=== PATIENT | female | born 1990 | race Caucasian/White ===

== ENCOUNTER → 2017-10-13 | Day surgery (SDC) | payer OTHER ==
[2017-07-14 14:28] VITALS: BMI 16.0
[2017-08-20 08:33] VITALS: BMI 17.0
[~2017-10-13] VITALS: Ht 167.6 cm; Wt 48.2 kg
[~2017-10-13] MED LIST: CITA20TA4 PO; DIVA500T59 PO; FLUT1INH INH; FLV1 PO; HYDR-389 PO; LIDOCAINE HCL 2% 2 ML VIAL (20MG/ML) ONE; METH2.5T PO; MIDAZOLAM HCL 1 MG/ML 2ML VIAL ONE; PROPOFOL IV EMULSION 10 MG/ML 20 ML VIAL ONE; RANI150T85 PO; SODIUM CHLORIDE 0.9% 500ML 500 ML IV ONE; SPR28 PO; VNTHFA/IN INH
[2017-10-13 11:42] VITALS: Ht 167.6 cm; Wt 48.2 kg
--- NOTE | 2017-10-13 12:08 | Endo History and Physical ---
History & Physical Date of Service: October 13, 2017. Chief Complaint: Crohn's disease Referring Physician: DR. ASHRAF History of Present Illness 26 yo CF who presents for colonoscopy secondary to Crohn's disease. Past Surgical History Hx Cardiac Surgery: No Hx Internal Defibrillator: No Hx Pacemaker: No Hx Abdominal Surgery: Yes (COLON RESECTION X2, APPY, [facility]) Hx of Implantable Prosthesis: No Hx Post-Op Nausea and Vomiting: No Hx Cancer Surgery: No Hx Thoracic Surgery: No Hx Orthopedic: No Hx Urinary Tract Surgery: No Family History None Social History Smoking Status: Current Every Day Smoker Hx Substance Use: Yes (MARIJUANA OCCASIONALLY) Hx Alcohol Use: No Allergies Coded Allergies: Adhesives (Verified Allergy, Unknown, RASH, 10/13/17) Ketorolac Tromethamine (Verified Allergy, Unknown, INCREASED ANXIETY, ) Meperidine (Verified Allergy, Unknown, INCREASED ANXIETY, 10/13/17) Tramadol (Verified Allergy, Unknown, INCREASES ANXIETY, 10/13/17) Current Medications Reported Home Medications Medications Dose Route/Sig Max Daily Dose Days Date Category Ventolin Hfa (Albuterol) 200 Puffs/89583 Mcg Aers 2-4 Puffs INH Q6H PRN 07/14/17 Reported Zantac (Ranitidine HCl) 150 Mg Tab 150 Mg PO HS 07/14/17 Reported Methotrexate 2.5 Mg Tab 3 Tab PO WK 07/14/17 Reported Folic Acid 1 Mg Tab 1 Tab PO QAM 07/14/17 Reported Depakote (Divalproex Sodium) 500 Mg Tab 1 Tab PO BID 07/14/17 Reported Vital Signs Weight (Kilograms): 48.18 Height (Feet): 5 Height (Inches): 6 Date Time Temp Pulse Resp B/P (MAP) Pulse Ox O2 Delivery O2 Flow Rate FiO2 10/13/17 12:02 36.5 73 18 104/64 (77) 99 Room Air Physical Exam General Appearance: WD/WN, no apparent distress Respiratory/Chest: Auscultation: breath sounds normal Cardiovascular: Heart Auscultation: RRR Abdomen: Bowel Sounds: normal Inspection & Palpation: soft, non-distended, no tenderness, guarding & rebound Assessment and Plan Assessment: 26 yo CF who presents for colonoscopy secondary to Crohn's disease. Plan: Proceed with colonoscopy
--- NOTE | 2017-10-13 13:05 | Anesthesiology Progress Note ---
Anesthesia Post Op Note Date & Time October 13, 2017 at 13:05 Vital Signs Pain Intensity: 0 Vital Signs Past 12 Hours Date Time Temp Pulse Resp B/P (MAP) Pulse Ox O2 Delivery O2 Flow Rate FiO2 10/13/17 13:01 79 18 102/76 (85) 100 Room Air 10/13/17 12:45 86 18 86/59 (68) 95 Room Air 10/13/17 12:02 36.5 73 18 104/64 (77) 99 Room Air Notes Mental Status: alert / awake / arousable, participated in evaluation Pt Amnestic to Procedure: Yes Nausea / Vomiting: adequately controlled Pain: adequately controlled Airway Patency, RR, SpO2: stable & adequate BP & HR: stable & adequate Hydration State: stable & adequate Anesthetic Complications: no major complications apparent
--- NOTE | 2017-10-13 13:10 | Discharge Instructions ---
Endoscopy Patient Instructions Date / Procedure(s) Performed October 13, 2017. Colonoscopy Allergy Information Coded Allergies: Adhesives (Verified Allergy, Unknown, RASH, 10/13/17) Ketorolac Tromethamine (Verified Allergy, Unknown, INCREASED ANXIETY, ) Meperidine (Verified Allergy, Unknown, INCREASED ANXIETY, 10/13/17) Tramadol (Verified Allergy, Unknown, INCREASES ANXIETY, 10/13/17) Discharge Date / Findings October 13, 2017. Crohn's Ileitis with severe stricture Random colon biopsies Medication Instructions OK to resume all medications today as prescribed Reported Home Medications Medications Dose Route/Sig Max Daily Dose Days Date Category Ventolin Hfa (Albuterol) 200 Puffs/66225 Mcg Aers 2-4 Puffs INH Q6H PRN 07/14/17 Reported Zantac (Ranitidine HCl) 150 Mg Tab 150 Mg PO HS 07/14/17 Reported Methotrexate 2.5 Mg Tab 3 Tab PO WK 07/14/17 Reported Folic Acid 1 Mg Tab 1 Tab PO QAM 07/14/17 Reported Depakote (Divalproex Sodium) 500 Mg Tab 1 Tab PO BID 07/14/17 Reported Provider Instructions Activity Restrictions - No exercising or heavy lifting for 24 hours. - Do not drink alcohol the day of the procedure. - Do not drive a car or operate machinery until the day after the procedure. - Do not make any important decisions or sign important papers in 24 hours after the procedure. Following Day: - Return to full activity which may include returning to work/school. Diet Start your diet with liquids and light foods (jello, soup, juice, toast). Then eat your usual diet if not nauseated. Treatment For Common After Affects For mild abdominal pain, bloating, or excessive gas: - Rest - Eat lightly - Lie on right side Follow-Up Information Follow-up with DR. ASHRAF as scheduled Anesthesia Information What You Should Know You have had a procedure that required some medicine to reduce anxiety and discomfort. This treatment is called moderate sedation. After receiving the treatment, you may be sleepy, but you will be able to breathe on your own. The effects of the treatment may last for several hours. Follow these instructions along with Activity/Diet recommendations noted above: * Do NOT do anything where dizziness or clumsiness would be dangerous. * Rest quietly at home today, then you can be up and about tomorrow. * Have a responsible person stay with you the rest of today. * You may have had an I.V. today. If so, you may take the dressing off later today. Recommendations Call your doctor if: * Trouble breathing * Continuous vomiting for more than 24 hours * Temperature above 101 degrees * Severe abdominal pain or bloating * Pain not relieved by pain medicine ordered * There is increased drainage or redness from any incision * A large amount of rectal bleeding greater than 2-3 tablespoons. (If you had a polyp/s removed or have hemorrhoids, a small amount of blood - from the rectum is to be expected.) * You have any unanswered questions or concerns. IN THE EVENT OF A SERIOUS EMERGENCY, GO TO THE NEAREST EMERGENCY ROOM Your discharge instructions were prepared by provider Miguel Angel Yusuf. Patient Instructions Signature Page Alicja Hernandez Patient (or Guardian) Signature/Date: I have read and understand the instructions given to me by my caregivers. Caregiver/RN/Doctor Signature/Date: The above-named patient and/or guardian has received patient instructions on this date. + Original Patient Signature Page (only) stays with chart. Please make copy for patient.
[2017-10-13 13:21] VITALS: BP 114/73; PULSE 71; O2SAT 98
--- NOTE | 2017-10-13 13:26 | GI REPORT ---
Patient Name: Alicja Hernandez Procedure Date: 10/13/2017 12:16 PM Date of : 1990 Admit Type: Outpatient Age: 26 Gender: Female Attending MD: Miguel Angel Yusuf DO Procedure: Colonoscopy Providers: Miguel Angel Yusuf DO Referring MD: Abe Ivan Indications: Disease activity assessment of Crohn's disease of the small bowel Medicines: Monitored Anesthesia Care Complications: No immediate complications. Estimated Blood Loss: Estimated blood loss: none. Procedure: Pre-Anesthesia Assessment: - Prior to the procedure, a History and Physical was performed, and patient medications and allergies were reviewed. The patient's tolerance of previous anesthesia was also reviewed. The risks and benefits of the procedure and the sedation options and risks were discussed with the patient. All questions were answered, and informed consent was obtained. Prior Anticoagulants: The patient has taken no previous anticoagulant or antiplatelet agents. ASA Grade Assessment: II - A patient with mild systemic disease. After reviewing the risks and benefits, the patient was deemed in satisfactory condition to undergo the procedure. After I obtained informed consent, the scope was passed under direct vision. Throughout the procedure, the patient's blood pressure, pulse, and oxygen saturations were monitored continuously. The scope was introduced through the anus and advanced to the ileocolonic anastomosis. The colonoscopy was performed without difficulty. The patient tolerated the procedure well. The quality of the bowel preparation was good. The terminal ileum and the rectum were photographed. Findings: The perianal and digital rectal examinations were normal. There was evidence of a prior end-to-side ileo-colonic anastomosis in the ascending colon. This was non-patent and was characterized by severe stenosis. The anastomosis was not traversed. The colon (entire examined portion) appeared normal. Several random biopsies were obtained with cold forceps for histology in the entire colon. Non-bleeding internal hemorrhoids were found during retroflexion. The hemorrhoids were small. 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 - The entire examined colon is normal. - Non-bleeding internal hemorrhoids. - Several random biopsies were obtained in the entire colon. Recommendation: - Resume previous diet. - Continue present medications. - Repeat colonoscopy in 1 year for surveillance. - Refer to a colo-rectal surgeon at appointment to be scheduled. - Will need started on chronic therapy, preferably Entyvio, as she has failed Humira and Remicade in the past. Decision will be made following her appt. with [facility]-rectal surgery, as I do not believe her level of inflammation will improve with medical therapy alone. Miguel Angel Yusuf, DO 10/13/2017 1:25:48 PM This report has been signed electronically. Note Initiated On: 10/13/2017 12:16 PM Number of Addenda: 0 I attest to the content of the Intraoperative Record and orders documented therein, exceptions below {[id number]}
== END | disposition home or self-care (01) ==
LOC: C.GI 11:28
PROVIDERS: ATTEND Internal Medicine
DX: K50.90 Crohn's disease, unspecified, without complications (principal); K64.8 Other hemorrhoids; J45.909 Unspecified asthma, uncomplicated; M19.90 Unspecified osteoarthritis, unspecified site; F17.200 Nicotine dependence, unspecified, uncomplicated; F12.10 Cannabis abuse, uncomplicated; Z90.49 Acquired absence of other specified parts of digestive tract